=== PATIENT | male | born 1985 | race Caucasian/White ===

== ENCOUNTER 2021-01-10 19:14 | Emergency (ER) | payer OTHER, SELFPAY ==
[2021-01-10 19:31] VITALS: BMI 32.5
--- NOTE | 2021-01-10 20:17 | ED_ITS ---
HPI - Skin/Abscess/Foreign Bdy General Chief complaint: General Medical Stated complaint: Rash Time Seen by Provider: 01/10/21 19:59 Source: patient Mode of arrival: ambulatory Limitations: no limitations History of Present Illness MD complaint: rash Onset (ago): week(s) (One week worse today) Location: LLE and RLE Severity: moderate Quality: pruritic Pain Consistency: constant Relieving factors: none Exacerbating factors: none Context: other (Unknown patient is homeless and IV drug user) Associated symptoms: denies other symptoms Treatments prior to arrival: none Related Data Previous Rx's Medication Instructions Recorded cephalexin 500 mg capsule 500 mg PO BID 10 Days #20 cap 01/10/21 diphenhydramine HCl 25 mg tablet 50 mg PO Q6-8H PRN #14 tab 01/10/21 (Benadryl Allergy) mupirocin 2 % topical ointment 1 appl TOPICAL TID #22 g 01/10/21 sulfamethoxazole 800 1 tab PO BID 10 Days #20 tab 01/10/21 mg-trimethoprim 160 mg tablet (Bactrim DS) Allergies Allergy/AdvReac Type Severity Reaction Status Date / Time cat dander [CATS] Allergy Unknown ALLERGIES Unverified 12/15/19 17:17 clams Allergy Unknown UNKNOWN Unverified 12/15/19 17:17 dog dander [DOGS] Allergy Unknown ALLERGIES Unverified 12/15/19 17:17 pollen extracts [POLLEN] Allergy Unknown ALLERGIES Unverified 12/15/19 17:17 DIARRHEA MEDICATION Allergy Unknown UNABLE TO Uncoded 12/15/19 17:17 CONTROL TONGUE AND MOUTH MOVEMENT DUST Allergy Unknown ALLERGIES Uncoded 12/15/19 17:17 Review of Systems Review of Systems: Constitutional : No Fever, No Chills , no body aches, no recent illness Head/Face: No facial swelling, No facial redness ENT/Mouth : No oral/throat swelling, No Hoarseness, No Swallowing Difficulty Eyes: No Eye Pain, No Swelling, No Redness Cardiovascular : No Chest Pain, No SOB, No palpitations Respiratory : No Cough, No Sputum, No Wheezing, No Smoke Exposure, No Dyspnea Gastrointestinal : No Nausea, No Vomiting, No Diarrhea, No abdominal Pain Genitourinary : No Dysuria, No Urinary Frequency, No Hematuria Musculoskeletal : No joint pain, No Myalgias, No Joint Swelling Skin : No Skin Lesions, positive rash Neuro : No Weakness, No Numbness, No Headache, No dizziness, No tingling Psych : No Anxiety/Panic, No Depression Heme/Lymph: No Bruising, No Lymphadenopathy Endocrine : No Polyuria, No Polydipsia Denies changes in lotions or detergents. Denies new medications or any changes in medications. Denies drainage from rash. Denies any recent sick contacts or recent travel. Yes all other systems are reviewed and are negative PMFSH Past Medical History Attestation statement: The following information was validated with the patient. Physical Exam Vital Signs: Vital Signs: Body Mass Index 32.5 vital signs have been reviewed as normal and appeared to be correct. Blood pressure normal Heart rate normal. Respiration rate normal. Temperature normal. Oxygen saturation normal. Appearance: Alert. Oriented X3. No acute distress. Head: Normal external exam. Normocephalic. Atraumatic. Eyes: PERRLA. EOMI. Conjunctiva and sclera normal. Eyelids normal. ENT: Pharynx normal. Uvula midline. Moist mucous membranes. Neck: Normal inspection. Neck supple. FROM. CVS: Normal heart rate and rhythm. Respiratory: No respiratory distress. Painless inspiration. Skin: Skin warm and dry. Normal skin color. Normal skin turgor. Patient with erythematous macular/papular pustules scattered to bilateral lower extremities possibly bug bites that are now superimposed with cellulitis. Could possibly be a folliculitis. No additional rashes/lesions/lacerations noted. Extremities: Extremities exhibit normal range of motion. Extremities nontender. Neuro: Oriented X 3. No motor deficit. No sensory deficit. Reflexes normal. Normal steady gait. No focal neuro deficits noted. Vascular: + radial pulses/+ 2 distal pedal pulses/+2 dorsalis pedis b/l. Normal cap refill. No cyanosis noted to upper extremity nails and lower extremity toes nails. Course Course Course Narrative: 35-year-old male presenting to the ED with a rash to his bilateral legs for approximately 1 week that are pruritic in nature he is currently homeless. On exam it appears that they started as bug bites although now they could be superimposed with cellulitis versus folliculitis. Will DC home with antibiotics and symptomatic treatment instructions to return if any new or worsening symptoms to follow up with primary care provider. Patient understands agrees with this plan. MDM - Skin/Abscess/Foreign Bdy Medical Records Attestation: I reviewed the patient's medical records. Discharge Plan Discharge Clinical Impression: Folliculitis, Cellulitis, Bug bite Patient Disposition: Home, Self-Care Instructions: Cellulitis (ED), Folliculitis (ED), Warm Compress or Soak (ED) Prescriptions: New cephalexin 500 mg capsule 500 mg PO BID 10 Days Qty: 20 RF: 0 sulfamethoxazole-trimethoprim [Bactrim DS] 800-160 mg tablet 1 tab PO BID 10 Days Qty: 20 RF: 0 diphenhydramine HCl [Benadryl Allergy] 25 mg tablet 50 mg PO Q6-8H PRN (Reason: itching) Qty: 14 RF: 0 mupirocin 2 % ointment 1 appl topical TID Qty: 22 RF: 2 Referrals: Physician,Unknown J [Primary Care Provider] - 2 days (your pcp) Print Language: Frisian
[2021-01-10 20:43] VITALS: BP 132/56; PULSE 66; RESP 14; TEMP 37.1; O2SAT 98
== END 2021-01-10 20:38 | disposition home or self-care (01) ==
LOC: HO.ED 20:25
PROVIDERS: Emergency Provider Emergency Medicine Emergency Medical Services
DX: S80.862A Insect bite (nonvenomous), left lower leg, initial encounter (principal); S80.861A Insect bite (nonvenomous), right lower leg, initial encounter; L03.116 Cellulitis of left lower limb; L03.115 Cellulitis of right lower limb; L73.9 Follicular disorder, unspecified; W57.XXXA Bitten or stung by nonvenomous insect and other nonvenomous arthropods, initial encounter; Y93.9 Activity, unspecified; Y92.9 Unspecified place or not applicable; Y99.9 Unspecified external cause status; Z59.02 Unsheltered homelessness
CPT/HCPCS: 99283

== ENCOUNTER 2021-01-20 12:23 | Emergency (ER) | payer OTHER, SELFPAY ==
--- NOTE | 2021-01-20 12:35 | ED.PSYCH ---
HPI - Psych General Chief Complaint: Psychiatric Symptoms Stated Complaint: SI Time Seen by Provider: 01/20/21 12:32 Source: patient Mode of arrival: ambulatory Limitations: no limitations History of Present Illness HPI Narrative: 35-year-old male with a history of polysubstance abuse (heroin, cocaine, PCP), previously on Suboxone, history of depression and SI with attempt with OD in the past, history of alcohol abuse presenting with suicidal ideation. He is a vague historian, but he reports worsening depression and new suicidal thoughts with plan to either hang himself or jump off of a bridge per reports her nursing. He also reports thoughts about trying to overdose again. He has been using drugs, but would not quantify how much or how often. He denies using anything today. He states he is homeless but he has a sister who lives locally. He is not currently on any psychiatric medications. 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 He reports being at [facility] last month where his doctor saw him and he was sent for detox. He knows he needs detox again. He has not been eating or sleeping well. He reports not sleeping in 3 days. MD complaint: suicidal ideation Onset (ago): unknown Duration: constant History of same: Yes Relieving factors: none Exacerbating factors: alcohol and drug use Context: recent drug abuse and significant life stressor Associated psychiatric symptoms: depression, suicidal ideation and other (Insomnia) Associated symptoms: headache and insomnia Treatments prior to arrival: none If self harm: admits thoughts of self harm and has plan Details of plan: Hanging, jump off a bridge, overdosed. Related Data Home Medications Medication Instructions Recorded Confirmed gabapentin 300 mg capsule 1 cap PO TID 01/20/21 Previous Rx's Medication Instructions Recorded cephalexin 500 mg capsule 500 mg PO BID 10 Days #20 cap 01/10/21 diphenhydramine HCl 25 mg tablet 50 mg PO Q6-8H PRN #14 tab 01/10/21 (Benadryl Allergy) mupirocin 2 % topical ointment 1 appl TOPICAL TID #22 g 01/10/21 sulfamethoxazole 800 1 tab PO BID 10 Days #20 tab 01/10/21 mg-trimethoprim 160 mg tablet (Bactrim DS) Allergies Allergy/AdvReac Type Severity Reaction Status Date / Time cat dander [CATS] Allergy Unknown ALLERGIES Unverified 12/15/19 17:17 clams Allergy Unknown UNKNOWN Unverified 12/15/19 17:17 dog dander [DOGS] Allergy Unknown ALLERGIES Unverified 12/15/19 17:17 pollen extracts [POLLEN] Allergy Unknown ALLERGIES Unverified 12/15/19 17:17 DIARRHEA MEDICATION Allergy Unknown UNABLE TO Uncoded 12/15/19 17:17 CONTROL TONGUE AND MOUTH MOVEMENT DUST Allergy Unknown ALLERGIES Uncoded 12/15/19 17:17 Review of Systems Review of Systems: Constitutional: No Fever, No Chills ENT/Mouth: No sore throat, No Rhinorrhea, No Swallowing Difficulty Cardiovascular: No Chest Pain, No SOB Respiratory: No Cough, No Sputum, No Wheezing, No dyspnea Gastrointestinal: No Nausea, No Vomiting, No Diarrhea, No abdominal Pain, +poor PO intake Genitourinary: No Dysuria, No Urinary Frequency, No Hematuria Musculoskeletal: No joint pain, No Myalgias Skin: No Skin Lesions, No rash Neuro: No Weakness, No Numbness, No Dizziness, + Headache Psych: + Anxiety/Panic, + Depression, +SI, No HI, No AH, No VH, +insomnia Heme/Lymph: No Bruising, No Lymphadenopathy PMFSH Social History Social History Advance Directives: No Physical Exam Vital Signs: Vital Signs: Last Vital Signs Pulse 62 01/20/21 17:05 Resp 16 01/20/21 17:05 BP 103/54 L 01/20/21 17:05 Pulse Ox 98 01/20/21 17:05 Body Mass Index 37.5 Appearance: Tired appearing, soft spoken. Oriented X3. No acute distress. Eyes: Pupils equal, round and reactive to light. ENT: Pharynx normal. Neck: Normal inspection. Neck supple. CVS: Normal heart rate and rhythm. Pulses normal. Respiratory: No respiratory distress. Breath sounds normal. Abdomen: Soft and nontender. +BS x4 Skin: Skin warm and dry. Normal skin color. Normal skin turgor. No rashes. Extremities: No lower extremity edema. Tattos on UE. Neuro/psych: Oriented X 3. No motor deficit. No sensory deficit. CN II-XII intact. Soft spoken, vague historian, +suicidality Course Course Course Narrative: 35-year-old male with history of polysubstance abuse, alcohol abuse, depression, history of suicide attempt in the past who is presenting with worsening depression and suicidal ideation. He has multiple plans on how he would execute a suicide attempt. He is lethargic on arrival and vague in his history. He denies any illicit drug use today, will get U tox and basic lab workup. His vital signs are stable. He would not benefit from and EATS program for both depression and substance abuse Reevaluation(s) Reevaluation #1: Multiple attempts were made at getting blood work without success, now patient is refusing any more attempts at phlebotomy. His urine toxicology was positive for opiates, fentanyl, cocaine and marijuana. He was seen by and who is recommending detox. There is a bed available tomorrow. Patient does not feel safe going home as he is afraid he is going to go through significant withdrawal in the very near future. He would like to be monitored in the emergency department until he can be accepted to detox bed tomorrow. Physician observation started at 7pm. Patient placed in physician observation because patient is awaiting detox bed for tomorrow. At the time observation was started patient's vital signs were stable. Patient is alert and oriented. Neuro exam is non-focal. CV: RRR and lungs are clear. Will continue to monitor. Will monitor cows score. MDM - Psych Lab Data Labs: Lab Results 01/20/21 01/20/21 01/20/21 Range/Units 13:06 13:06 13:06 Urine Color YELLOW Urine Appearance CLEAR Urine pH 6.0 (5.0-8.0) Ur Specific Reeves 1.015 (1.005-1.025) Urine Protein NEG (NEG-TRACE) MG/DL Urine Glucose (UA) NEG (NEG) MG/DL Urine Ketones NEG (NEG) MG/DL Urine Blood NEG (NEG) Urine Nitrite NEG (NEG) Ur Leukocyte Esterase NEG (NEG) Urine Opiates Screen POSITIVE H (Not Detect) Urine Fentanyl Screen POSITIVE H (Not Detect) Ur Barbiturates Screen Not Detected (Not Detect) Ur Phencyclidine Scrn Not Detected (Not Detect) Ur Amphetamines Screen Not Detected (Not Detect) U Benzodiazepines Scrn Not Detected (Not Detect) Urine Cocaine Screen POSITIVE H (Not Detect) U Marijuana (THC) Screen POSITIVE H (Not Detect) COVID-19 (UBALDO) Negative (Negative) COVID-19 Clin Com See Note Discharge Plan Discharge Clinical Impression: Depression, Polysubstance abuse Instructions: Polysubstance Abuse (ED) Prescriptions: No Action gabapentin 300 mg capsule 1 cap PO TID RF: 0 cephalexin 500 mg capsule 500 mg PO BID 10 Days Qty: 20 RF: 0 sulfamethoxazole-trimethoprim [Bactrim DS] 800-160 mg tablet 1 tab PO BID 10 Days Qty: 20 RF: 0 diphenhydramine HCl [Benadryl Allergy] 25 mg tablet 50 mg PO Q6-8H PRN (Reason: itching) Qty: 14 RF: 0 mupirocin 2 % ointment 1 appl topical TID Qty: 22 RF: 2
[2021-01-20 12:53] VITALS: RESP 18; BMI 37.5
[2021-01-20 13:21] LABS: Appearance Urine CLEAR; Color Urine YELLOW; Glucose Urine UA NEG (NEG); Leukocyte Esterase Urine NEG (NEG); Nitrite Urine NEG (NEG); Specific Gravity - Urine 1.015 (1.005-1.025); Urine Blood NEG (NEG); Urine Ketones NEG (NEG); Urine Protein NEG (NEG-TRACE)
[2021-01-20 13:30] LABS: Amphetamine Screen Urine Not Detected (Not Detect); Barbiturates, Urine Not Detected (Not Detect); Benzodiazepines Screen Urine Not Detected (Not Detect); Cannabinoid Screen Urine POSITIVE (Not Detect); Cocaine Screen Urine POSITIVE (Not Detect); Fentanyl, urine POSITIVE (Not Detect); Opiate Screen Urine POSITIVE (Not Detect); Phencyclidine Screen Urine Not Detected (Not Detect)
[2021-01-20 13:35] LABS: COVID-19 Test Negative (Negative); IDNOW Serial# 9DD0AD1C
[2021-01-20 17:05] VITALS: BP 103/54; PULSE 62; RESP 16; O2SAT 98
[2021-01-21 01:54] VITALS: PULSE 71
[2021-01-21 02:02] VITALS: BP 151/93; PULSE 76; RESP 18; TEMP 36.6; O2SAT 99
[2021-01-21] MEDS: LORazepam 1 MG TABLET 2 MG PO (02:03)
[2021-01-21] MEDS: Albuterol Sulfate 90 MCG 8 GM INHALER 2 PUFF INHALE (02:54)
--- NOTE | 2021-01-21 05:50 | PC.NURSE ---
Patient is currently in bed sleeping, @ 0159 patient reported he was uncomfortable, COWS assessed scored 10, provider notified/ordered ativan 2 mg, administered as ordered with positive effect, patient also received Ventolin 2 puff for asthma flare up with positive effect, behavior appropriate, medication compliant, contracted for the safety, VSS, patient disposition per [facility] is to go to [facility] in [place] in the morning, [facility] will arrange the ride if for reason [facility] couldn't arrange the ride, care team will arrange a ride, will continue to monitor.
--- NOTE | 2021-01-21 07:02 | PC.NURSE ---
patient appears to remain aslepe at prsent with even unlbaored breaths patient appears in no distress
[2021-01-21 09:07] VITALS: BP 151/93; PULSE 76
[2021-01-21] MEDS: cloNIDine HCL 0.1 MG TABLET PO (09:07)
[2021-01-21 09:47] VITALS: BP 140/71; PULSE 74; RESP 16; TEMP 36.8; O2SAT 100
[2021-01-21 10:08] VITALS: PULSE 72
[2021-01-21] MEDS: LORazepam 1 MG TABLET PO (10:20)
--- NOTE | 2021-01-21 12:16 | MHC.RECOVSUP ---
Recovery Support note: Patient is a 35 year old Sinhala speaking male who presented to [facility] ED seeking detox and reporting SI. Patient was evaluated by LIZZETTE. N determined patient would benefit most from detox and that they are holding a bed for him at [facility]. This service writer advisor met with patient and confirmed he is still interested in detox. [facility] did not have a bed for patient however they reviewed him for admission and accepted him. Patient to complete intake with [facility]. This service writer advisor will assist patient in coordinating transportation to the facility.
== END 2021-01-21 12:54 | disposition other institution (70) ==
PROVIDERS: Physician Assistant; Emergency Provider Emergency Medicine
DX: F33.1 Major depressive disorder, recurrent, moderate (principal); R45.851 Suicidal ideations; F11.10 Opioid abuse, uncomplicated; F14.10 Cocaine abuse, uncomplicated; G47.00 Insomnia, unspecified; G51.9 Disorder of facial nerve, unspecified; Z20.822 Contact with and (suspected) exposure to COVID-19; Z79.899 Other long term (current) drug therapy; Z71.51 Drug abuse counseling and surveillance of drug abuser
CPT/HCPCS: 36415; 80307; 81003; 87635; 99284; 99285

== ENCOUNTER 2022-10-19 08:10 | Emergency (ER) | payer OTHER, SELFPAY ==
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
[2022-10-19 08:24] VITALS: BP 138/81; PULSE 85; RESP 18; TEMP 36.4; O2SAT 95; BMI 33.5
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
[2022-10-19 12:48] VITALS: BP 129/73; PULSE 75; RESP 14; TEMP 36.9; O2SAT 97
[2022-10-19 14:34] VITALS: BP 137/88; PULSE 82; RESP 16; TEMP 36.9; O2SAT 96
--- NOTE | 2022-10-19 14:36 | MHC.RECOVRN ---
Pt sleeping, wakes briefly to voice. Not able to engage in conversation at this time with t/w.
--- NOTE | 2022-10-19 15:37 | PC.NURSE ---
assumed care of pt. pt continues to appear to be somnolent. VSS, pt with no complaints at this time, NAD
--- NOTE | 2022-10-19 16:09 | PC.NURSE ---
pt arousable to name, denies detox at this time. offer list for detox at this time. pt denies SI/SHb. d/c at this time
== END 2022-10-19 16:12 | disposition home or self-care (01) ==
PROVIDERS: Emergency Provider Emergency Medicine Emergency Medical Services
DX: F19.10 Other psychoactive substance abuse, uncomplicated (principal); S02.2XXA Fracture of nasal bones, initial encounter for closed fracture; S09.90XA Unspecified injury of head, initial encounter; Y04.2XXA Assault by strike against or bumped into by another person, initial encounter; Y93.9 Activity, unspecified; Y92.9 Unspecified place or not applicable; Y99.9 Unspecified external cause status
CPT/HCPCS: 70450; 70486; 99284

== ENCOUNTER 2023-08-03 01:59 | Emergency (ER) | payer OTHER, SELFPAY ==
[2023-08-03 02:11] VITALS: BP 142/86; PULSE 106; RESP 20; TEMP 37; O2SAT 96; BMI 27.4
--- OUTSIDE RECORDS SUMMARY | 2023-08-03 02:40 | XMS_ITS | Continuity of Care Document ---
Author Organization [facility] Address [address] [place] [address]- Care Team Providers [employer] Name Role Phone Not on Staff, PCP Primary Care Physician Unavail able [id number] Date(s): 02/16/21 - 02/16/[address] [address]- Discharge Disposition: A-D/C Home Attending Physician: Gabriele Crowder MD Admitting Physician: Gabriele Crowder MD Referring Physician: Not on Staff, Referring MD Allergies, Adverse Reactions, Alerts Substance Reaction Severity Status NKA Active Medications cloNIDine 0.1 mg oral tablet 0.1 mg, 1, tablet, By Mouth, 2 times a day, Refills 0, Maintenance, 02/16/21 10:12:00 EST, Partial fill upon patient request if the prescription is for a schedule II opioid drug. Start Date: 02/16/21 Status: Ordered Gabapentin = 300 mg, By Mouth, 3 times a day, 0 Refills, Maintenance, 02/16/21 10:12:00 EST, Partial fill uponpatient request if the prescription is for a schedule II opioid drug. Start Date: 02/16/21 Status: Ordered Methadone By Mouth, 0 Refills, Maintenance, 02/16/21 10:12:00 EST, Partial fill upon patient request if the prescription is for a schedule II opioid drug. Start Date: 02/16/21 Status: Ordered methadone 10 mg oral tablet 30 mg, Tablet, By Mouth, Once, STAT, 02/16/21 10:36:00 EST, Stop date 02/16/21 10:36:00 EST Start Date: 02/16/21 Stop Date: 02/16/21 Status: Completed naloxone 4 mg/0.1 mL nasal spray = 4 mg, Nares, Both, Once, may repeat every 2 to 3 minutes until patient responds, # 2 each, 0 Refills, Soft Stop, 02/09/19 19:53:28 EST Start Date: 05/08/18 Status: Ordered Vistaril pamoate 50 mg oral capsule 1 capsule = 50 mg, By Mouth, 4 times a day, PRN for anxiety, # 40 capsule, 0 Refills, Maintenance, 02/16/21 10:13:00 EST, Capsule, Partial fill upon patient request if the prescription is for a schedule II opioid drug. Start Date: 02/16/21 Status: Ordered Problem List Condition Effective Dates Status Health Status Inform ant Hepatitis C(Confirmed) Active Obese class I(Confirmed) Active Vital Signs Most recent to oldest [Reference Range]: 1 2 Height 180 cm (02/16/21 10:11 AM) 180 cm (02/16/21 10:09 AM) Weight 105.6 kg (02/16/21 10:11 AM) 105.6 kg (02/16/21 10:09 AM) Oxygen Saturation [94-100 %] 99 % (02/16/21 10:09 AM) Pulse Rate [55-90 bpm] 64 bpm (02/16/21 10:09 AM) Body Mass Index [18.5-24.99] 32.59 *>HHI* (02/16/21 10:09 AM) Blood Pressure [90-138/55-84 mm Hg] 156/ 80mm Hg *H* (02/16/21 10:09 AM) Respiratory Rate [16-30 br/min] 16 br/mi n (02/16/21 10:41 AM) 16 br/min (02/16/21 10:09 AM) Temperature [96.8-100.4 DegF] 98.1 DegF (02/16/21 10:09 AM) Mode of Delivery (Oxygen) Room air (02/16/21 10:09 AM) Blood pressure sites Arm, left (02/16/21 10:09 AM) Temperature Route Temporal (02/16/21 10:09 AM) Dry Weight 105.6 kg (02/16/21 10:11 AM) 105.6 kg (02/16/21 10:09 AM) Weight Obtained Via Standing scale (02/16/21 10:09 AM) Dry Weight Obtained Via Standing scale (02/16/21 10:09 AM) Social History Social History Type Response Tobacco Use: 4 or less cigar ettes(less than 1/4 pack)/day in last 30 days. Sex
--- OUTSIDE RECORDS SUMMARY | 2023-08-03 02:40 | XMS_ITS | Continuity of Care Document ---
Author Organization [facility] Address [address] [place] [address] Phone Care Team Providers Care Human Resources Analyst Name Role Phone MD Lamberto Brownas Emergency Provider Unavaila MD Vernon Rose Attending Provider [email or web address] [email or web address] Edge Primary Care Provider [phone] Ilya Edge Family Provider Custom Grinder, Mira Other Provider Unavailable Chief Complaint and Reason for Visit Chief Complaint RIGHT SUPRACLAVICULA R ABSCESS Reason for Visit Abscess Depression Foreign body in skin Allergies, Adverse Reactions, Alerts No known allergies Social History Smoking Status Unknown if ever smoked Observation Status Observation Response Date of Response Lives With Friend/Roommate July 24, 2022 11:29am Living Situation Apartment July 24 12:31pm Services Prior to Admission None Apri l 2022 11:29am Additional Data Assigned Sex Male Problems Active Problems Medical Problem Onset Date Status Abscess Active Depression Active Foreign body in skin Active Opioid abuse Active Medications Medication Status Dose Units Route Directions Qty Days St art Date End Date Instructions Cefpodoxime Active 200 MG PO TWICE A DAY 20 July 28, 2022 12:00am must administer with a meal/food Procedures Procedure Date Performed Status CT soft tissue neck w contrast July 23, 2022 9:31pm completed US guide cyst aspiration July 24, 2022 10:40a m completed US soft tissue head and neck July 25, 2022 8: 43am completed Coronavirus COVID-19 PCR complet ed Gram Stain completed Abscess Culture completed Relevant Diagnostic Tests and/or Laboratory Data Laboratory Results Test Date/Time Result Interpretation Reference Range Result Comment Performing Site White Blood Count July 25, 2022 6:00am 6.7 X10 3/uL 4.5-11.0 [facility] [id number] [address] [place] [address] 26985 Red Blood Count July 25, 2022 6:00am 4.67 X10 6/uL 4.00-5.50 [facility] [id number] [address] [place] [address] 93262 Hemoglobin July 25, 2022 6:00am 13.7 g/dl 13.0-17.0 [facility] [id number] [address] [place] [address] 77809 Hematocrit July 25, 2022 6:00am 43.0 % 37.5-50.0 [facility] [id number] [address] [place] [address] 12904 Mean Corpuscular Volume July 25, 2022 6:00am 92.1 fl 80.0-100.0 [facility] [id number] [address] [place] [address] 77498 Mean Corpuscular Hemoglobin July 25, 2022 6:00am 29.3 pg 27.0-34.0 [facility] [id number] [address] [place] [address] 27890 Mean Corpuscular Hemoglobin Concent July 25, 2022 6:00am 31.9 g/dl 31.0-36.0 [facility] [id number] [address] [place] [address] 97026 Red Cell Distribution Width July 25, 2022 6:00am 12.8 % 11.5-15.0 [facility] [id number] [address] [place] [address] 23083 Platelet Count July 25, 2022 6:00am 330 X10 3/uL 150-400 [facility] [id number] [address] [place] [address] 02027 Immature Granulocyte % (Auto) July 25, 2022 6:00am 0.4 % [facility] [id number] [address] [place] [address] 05490 Neutrophils (%) (Auto) July 25, 2022 6:00am 44.9 % [facility] [id number] [address] [place] [address] 56908 Lymphocytes (%) (Auto) July 25, 2022 6:00am 40.7 % [facility] [id number] [address] [place] [address] 82169 Monocytes (%) (Auto) July 25, 2022 6:00am 9.5 % [facility] [id number] [address] [place] [address] 77920 Eosinophils (%) (Auto) July 25, 2022 6:00am 3.9 % [facility] [id number] [place] [address] 70954 Basophils (%) (Auto) July 25, 2022 6:00am 0.6 % [facility] [id number] [place] [address] 49217 Immature Granulocyte # (Auto) July 25, 2022 6:00am 0.03 X10 3/uL 0.00-0.09 [facility] [id number] [address] [place] [address] 94743 Neutrophils # (Auto) July 25, 2022 6:00am 3.0 X10 3/uL 1.5-7.8 [facility] [id number] [address] [place] [address] 04016 Lymphocytes # (Auto) July 25, 2022 6:00am 2.7 X10 3/uL 1.0-4.8 [facility] [id number] [address] [place] [address] 03356 Monocytes # (Auto) July 25, 2022 6:00am 0.6 X10 3/uL 0.0-0.8 [facility] [id number] [address] [place] [address] 50549 Eosinophils # (Auto) July 25, 2022 6:00am 0.3 X10 3/uL 0.0-0.5 [facility] [id number] [address] [place] [address] 04976 Basophils # (Auto) July 25, 2022 6:00am 0.0 X10 3/uL 0.0-0.2 [facility] [id number] [address] [place] [address] 20560 Nucleated Red Blood Cells % July 25, 2022 6:00am 0.0 /100 WBC 0.0-0.0 [facility] [id number] [address] [place] [address] 63318 Sodium Level July 25, 2022 6:00am 139 mmol/L 137-146 [facility] [id number] [address] [place], [place] [address] Potassium Level July 25, 2022 6:00am 4.0 mmol/L 3.5-5.3 [facility] [id number] [address] [place] [address] 17050 Chloride Level July 25, 2022 6:00am 102 mmol/L 98-107 [facility] [id number] [address] [place] [address] 53149 Carbon Dioxide Level July 25, 2022 6:00am 28 mmol/L 23-32 [facility] [id number] [address] [place], [place] [address] Anion Gap July 25, 2022 6:00am 9 mmol/L 5-15 [facility] [id number] [address] [place] [address] 03415 Blood Urea Nitrogen July 25, 2022 6:00am 11 mg/dl 5-25 [facility] [id number] [address] [place] [address] 00378 Creatinine July 25, 2022 6:00am 0.8 mg/dL 0.6-1.4 [facility] [id number] [address] [place], [place] [address] Estimated Creatinine Clearance July 25, 2022 6:00am 165.2 ml/min This value is calculated by Cockcroft Gault Equation using ideal body weight. This result is dependent on an accurate patient height and weight which is obtained from patients medical record. Cockcroft, D.W. and M.H. Gault. Prediction of creatinine clearance from serum creatinine. Nephron. 1976. 16(1):31-41. [facility] [id number] [address] [place], [place] [address] Estimat Glomerular Filtration Rate July 25, 2022 6:00am 116 >90 Reported eGFR is based on the CKD-EPI 2020 equation that does not use a race coefficient. Additional information can be found at: 1_icb_egfr_s janice_sole 5.pdf (kidney.org) [facility] [id number] [address] [place] [address] 99066 BUN/Creatinine Ratio July 25, 2022 6:00am 13.8 10.0-20.0 [facility] [id number] [address] [place] [address] 95377 Glucose Level July 25, 2022 6:00am 115 mg/dL 70-100 [facility] [id number] [address] [place] [address] 92438 Calcium Level July 25, 2022 6:00am 9.0 mg/dl 8.6-10.3 [facility] [id number] [address] [place] [address] 54236 Total Bilirubin July 23, 2022 9:50pm < 0.2 mg/dl <1.1 [facility] [id number] [address] [place] [address] 58233 Aspartate Amino Transf (AST/SGOT) July 23, 2022 9:50pm 40 U/L 15-41 [facility] [id number] [address] [place] [address] 73171 Alanine Aminotransferase (ALT/SGPT) July 23, 2022 9:50pm 66 U/L 14-63 [facility] [id number] [address] [place] [address] 52532 Total Protein July 23, 2022 9:50pm 7.6 g/dL 6.4-8.3 [facility] [id number] [address] [place] [address] 65831 Albumin July 23, 2022 9:50pm 3.7 g/dl 4.0-5.0 [facility] [id number] [address] [place] [address] 39717 Albumin/Globulin Ratio July 23, 2022 9:50pm 0.9 1.0-2.6 [facility] [id number] [address] [place] [address] 15648 Alkaline Phosphatase July 23, 2022 9:50pm 74 U/L 40-129 [facility] [id number] [address] [facility] [address]687 Hepatitis A IgM Antibody July 25, 2022 6:00am Non-react farzana Non React [facility] [id number] [address] [place] [address] 02072 Hepatitis B Surface Antigen July 25, 2022 6:00am Non-react farzana Non React [facility] [id number] [address] [place] [address] 57334 Hepatitis B Core IgM Antibody July 25, 2022 6:00am Non-react farzana Non React [facility] [id number] [address] [place] [address] 67514 Hepatitis C Antibody July 25, 2022 6:00am Reactive Non React [facility] [id number] [address] [place] [address] 60206 Microbiology Results Procedure Source Result Collection Date/Time Result Date/Time Result Comment Performing Site Gram Stain Neck July 24, 2022 9:17pm [facility] [id number] [address] [place] [address] 61789 Abscess Culture Neck Alpha hemolytic streptococcus July 28, 2022 9:33am [facility] [id number] [address] [place] [address] 74767 Neck Meth Sensitive Staph aureus July 28, 2022 9:33am [facility] [id number] [address] [place] [address] 31143 Coronavirus COVID-19 PCR Nares, Both Left & Right July 28, 2022 11:38am [facility] [id number] [address] [place] [address] 38027 Diagnostic Imaging Reports Report Dictated Date/Time Dictated By Status Radiology Report July 23, 2022 10:55pm Marvin Mcclain MD completed [address] [phone] Patient Name: Rupesh Mccartney Medical Record#: [id number] Address: [address] [place] [address] City/State/Zip: [place] [address]: Angelina Brown MD Insurance: [facility] (Medicaid) /Age/Sex: 1985/37/M Self Pay Admit/Reg Date: 07/23/[address]: TESSA Jalloh Location: ED.[facility]/ PCP: Pcp-Md MIGUELITO Adam Date of Service: 07/23/22 Order (s): CT soft tissue neck w contrast CPT Code: 46855 Report Number: [id number] Reason for Exam: right supraclavian abscess PROCEDURE: CT soft tissue neck w contrast INDICATION: right supraclavian abscess. IVDA TECHNIQUE: Informed written consent was obtained for intravenous contrast administration. Examination was performed using a helical acquisition with 2.5 mm thick images obtained from the skull base through the thoracic inlet during the intravenous administration of 50 ml of Omnipaque 300 intravenous contrast by power injector. Automatic exposure control was used. Axial imaging is reformatted to the coronal and sagittal planes COMPARISON: None FINDINGS: The cervical airway is patent. The vascular and muscular structures are unremarkable at the neck. At the right neck base, supraclavicular region, there is a rounded nodule with low density center measuring roughly 2 cm in maximal diameter. This is consistent with abscess or hematoma this is located just lateral to the sternocleidomastoid muscle on the right. There is overlying skin thickness consistent with surrounding cellulitis. Medial and inferior to this abscess at the wall of this structure there is a 12 mm metallic linear foreign body which may represent a needle fragment. This is in an AP orientation. Some VASCULAR STRUCTURES - likely veins - appear just lateral and inferior to this abscess. Visualized lung cloud appear clear there is mild bilateral cervical lymphadenopathy deep to this study muscle, slightly worse IMPRESSION: Consistent with a right subcutaneous supraclavicular abscess. This can be aspirated under sonographic guidance. In addition, an apparent needle fragment is seen inferior and medial to this abscess in an AP orientation. These results have been discussed with GIO Harris in the [facility] at 11:00 PM on 05/25/2022. Dictated By: Marvin Mcclain MD 07/23/222254 Signed By: Marvin Mcclain MD 07/23/228 TD/TT: 07/23/222254Tech: [id number] cc: PASCUAL; TYREE; VARTA03* TESSA Jalloh; Md Heide MD; William Brown MD Report Dictated Date/Time Dictated By Status Radiology Report July 24, 2022 2:32pm Zac Julian MD completed [address] [phone] Patient Name: Rupesh Mccartney Medical Record#: [id number] Address: [address] [place] [address] City/State/Zip: [place] [address]: Josh Fonseca MD Insurance: [facility] (Medicaid) /Age/Sex: 1985/37/M Self Pay Admit/Reg Date: 07/23/[address]: Yashira sarabia PAC Location: [address] [place], [place] [id number] PCP: Md MIGUELITO Jaeger Date of Service: 07/24/22 Order (s): US guide cyst aspiration CPT Code: 60858 Report Number: [id number] Reason for Exam: ultrasound guided neck abscess aspiration PROCEDURE: Ultrasound guided percutaneous aspiration right neck abscess. HISTORY: Right neck abscess resulting in pain and swelling. TECHNIQUE: Ultrasound of the right neck base revealed a 2.7 x 1.5 cm heterogenous fluid collection compatible with abscess, suitable for percutaneous aspiration. The overlying skin was cleaned sterilely and 5 mL 1% administered. Under direct ultrasound guidance, a 5F Yueh catheter was inserted into the collection and approximately 3 cc of blood stained pus aspirated. Samples were sent for culture and sensitivity. Patient was transferred to the floor in a stable condition. IMPRESSION: Ultrasound-guided percutaneous needle aspiration right neck abscess with removal of 3 mL of blood stained pus. Dictated By: Zac Julian MD 07/24/221431 Signed By: Zac Julian MD 07/24/221437 TD/TT: 07/24/221431Tech: [id number] cc: TYREE; WENDY Jasso, PAC; Md Heide MD; Vernon Fonseca MD Report Dictated Date/Time Dictated By Status Radiology Report July 25, 2022 10:32am Varun Epps MD completed [address] [place] [address] Patient Name: Rupesh Mccartney Medical Record#: [id number] Address: [address] [place] [address] City/State/Zip: [place] [address]: Josh Fonseca MD Insurance: [facility] (Medicaid) /Age/Sex: 1985/37/M Self Pay Admit/Reg Date: 07/23/[address]: Shreya Guzman MD, PGY Location: [address] [place], [place] [id number] PCP: Md MIGUELITO Jaeger Date of Service: 07/25/22 Order (s): US soft tissue head and neck CPT Code: 13528 Report Number: [id number] Reason for Exam: andreas abscess and needle site for surgery Patient name: Rupesh Mccartney Exam: US soft tissue head and neck Technique: Ultrasound of the right neck Procedure Date and Time: 07/25/2022 9:36 AM Indication: andreas abscess and needle site for surgery . 37-year-old male patient with a known right supraclavicular abscess previously aspirated. Also has a known needle fragments near the abscess. Comparison: 07/24/2022 and 07/23/2022 Findings: 6 images provided. The previously drained abscess which now has the appearance of a phlegmon is again seen. This was marked by the replenishment buyer. IMPRESSION: IMAGES OBTAINED DURING MARKING OF THE SKIN OVERLYING THE ABSCESS AND NEEDLE FRAGMENT IN THE RIGHT SUPRACLAVICULAR REGION. Dictated By: Varun Epps MD 07/25/22 1032 Signed By: Varun Epps MD 07/25/22 1039 TD/TT: 07/25/22 1032Tech: [id number] cc: DIMITRIOS; PCPCHELI; ABEBA* Shreya Guzman MD, PGY; Md Heide MD; Vernon Fonseca MD Vital Signs Vital Reading Result Reference Range Collection Date/Time Height 180.34 cm July 24 1:33am Weight 120.34 kg July 24 1:33am Body Temperature 98.1 [degF] 97.6-99.6 July 28 5:45am Heart Rate 56 /min 60-90 July 28, 2022 5 :45am Respiratory rate 18 /min 12-24 July 28 5:45am Oxygen saturation by Pulse oximetry 98 % 95-100 July 28, 2022 5:45am BP Systolic 106 mm[Hg] 90-140 July 28, 2022 5 :45am BP Diastolic 62 mm[Hg] 60-90 July 28, 2022 5 :45am BMI (Body Mass Index) 37.0 kg/m2 July 24, 2022 1:33am Advance Directives Advance Directive Response Recorded Date/ Time Pt has Medical Orders for Li fe Sustaining Tx Form (MOLST)? No July 24, 2022 11:29am Advance Directives No July 24, 2 023 11:29am Health Care Proxy No July 24 11:29am Insurance Providers Guarantor Rupesh Mccartney Address [address] [place] [address] Contact Info. Home Phone: Payer Policy Id Coverage Id Subscriber's Name Subscriber Id Effective Date Expiration Date [facility] (Medicaid) [id number] Rupesh Mccartney [id number] [facility] Required [id number] Encounters Encounter Location(s) Arrival/Admit Date Discharge/Depart Date Provider(s) Discharged Inpatient [address] July 23, 2022 11:30pm July 28, 2022 3:30pm Vernon Fonseca MD Recent Diagnosis Onset Date Abscess Depression Foreign body in skin Functional Status Observation Response Date Recorded Assistive Devices None July 24 11:29am Ambulation Tolerance Good July 28 10:04am Date of Last Bowel Movement 07/28/22 July 28, 2022 10:04am Oral Care Teeth Brushing July 27, 2022 12:38pm Mental Status Observation Response Date Recorded Arousable To Name July 28, 2022 2: 59am Patient Behavior Appropriate July 28, 2022 2 :59am Cooperative July 28, 2022 2: 59am Comprehension Ability Understands Concepts July 282022 2:59am Level of Consciousness Awake July 28, 2022 2:59am Alert July 28, 2022 2: 59am Appropriate July 28, 2022 2: 59am Assessments Diagnosis Onset Date Resolution Status Abscess acute Depression acute Foreign body in skin acute Plan of Treatment Future Tests Future scheduled test information is unavailable Pending Tests Test Name Ordered Date Scheduled Date VTE Risk Assessment Medical July 23, 2022 11: 29pm July 23, 2022 11:30pm Future Visits Future appointment information is unavailable Referrals to Other Providers Reason for Referral Referral Start Date Provider Provider Contact Information Provider Address Ilya Edge Work Phone: Future Procedures Procedure Name Ordered Date Scheduled Date Hospital Level of Care July 23, 2022 11:29pm July 23, 2022 11:30pm Psychiatry Consult July 27, 2022 11:43am Apri l 2022 11:43am Discharge July 28, 2022 11:40am July 28, 023 11:40am ED Transfer of Care to Adm Physician July 23, 2022 11:32pm July 23, 2022 11:32pm Saline Lock Insert/Manage July 23, 2022 9:30p m July 23, 2022 9:30pm Patient Preference for Pain Management July 23, 2022 11:29pm July 23, 2022 11:30pm Sequential Compression Device July 23, 2022 1 1:29pm July 23, 2022 11:30pm Future Medications Future medication information is unavailable Patient Instructions Patient instructions are unavailable Goals Acute Goals Dear Bib, It has been a pleasure caring for you here. You came to the hospital because of pain and swelling in your neck, where you had injected IV drugs. While you were here, we monitored you closely and ran some tests and imaging. You were found to have an abscess, which was drained, as well as a small needle fragment in your neck. We gave you IV antibiotics and monitored your labs and vitals. Because you are responding to antibiotics, and your symptoms are improving, we are clearing you for discharge with these recommendations: Follow-up: [] You have a follow up appointment scheduled with Dr. Newby in the [facility] on August 06 at 10:15 AM [] Please follow up with your primary care provider within 1-2 weeks of discharge home Medications: [] Please take cefpodoxime (Vantin), an antibiotic, twice daily by mouth for the next 10 days [] You can take acetaminophen and ibuprofen as needed for pain. Please do not exceed the recommended maximum daily dose Please return to the nearest emergency department if your symptoms return and/or worsen. The [facility] team Recognize the need for isola tion Describe the mode of transmi ssion Absence of infection signs a nd symptoms Patient/Caregiver understands the importance of: - Baseline body temperature - Handwashing and environmental hygiene - Antibiotics compliance Absence of falls Including: - Early & often mobilization when appropriate - Passive/active range of motion as appropriate - toileting schedule implementation - implementation of fall risk interventions Pt reports/exhibits pain at hernandez level Including: - Pain controlled by pharmacological/non-pharmacological means - Establish realistic pain and function goals prior to initiating opioid therapy in patients with chronic pain if applicable - Discuss known risks and realistic benefits of opioid therapy Wound/Skin Integ Progressive ly Improving Including: - Evidence of healing - No s/s of infection Absence of fluid/electrolyte imbalance Including: - Improved lab values - Adequate urine output - Adequate hydration - Stable weight if appropriate Able to achieve maximum mobi lity level Including: - Understands safety - Demonstrates progress in improved mobility - Demonstrates correct use of mobility devices if appropriate - Understands & accepts limitations & plan for progression as appropriate Absence of infection signs a nd symptoms Patient/Caregiver understands the importance of: - Baseline body temperature - Handwashing and environmental hygiene - Antibiotics compliance Antimicrobial Educ Reviewed with Patient Safely transition to next le [facility] of care Patient/family has: - Appropriate access to resources and support services as applicable Absence of nausea/vomiting Including: - [place] foods, cool liquids, dry foods and high-carbohydrate diet - Small, frequent meals - Restrict dairy products
--- OUTSIDE RECORDS SUMMARY | 2023-08-03 02:40 | XMS_ITS | Continuity of Care Document ---
Author Organization [facility] Address [address] [place] [id number]- Care Team Providers Care Trailer Driver Name Role Phone Not on Staff, PCP Primary Care Physician Unavail able Encounter [facility] Date(s): 05/28/20 - 05/29/[address] [address]- Discharge Disposition: A-D/C Walkout Attending Physician: Not on Staff, Attending MD Admitting Physician: Not on Staff, Admitting MD Referring Physician: Not on Staff, Referring MD Allergies, Adverse Reactions, Alerts Substance Reaction Severity Status NKA Active Medications naloxone 4 mg/0.1 mL nasal spray = 4 mg, Nares, Both, Once, may repeat every 2 to 3 minutes until patient responds, # 2 each, 0 Refills, Soft Stop, 05/08/18 19:53:28 EST Start Date: 05/08/18 Status: Ordered Problem List Condition Effective Dates Status Health Status Inform ant Hepatitis C(Confirmed) Active Vital Signs Most recent to oldest [Reference Range]: 1 2 Oxygen Saturation [94-100 %] 97 % (05/28/20 11:23 PM) 100 % (05/28/20 8:53 PM) Pulse Rate [55-90 bpm] 80 bpm (05/28/20 11:23 PM) 86 bpm (05/28/20 8:53 PM) Blood Pressure [90-138/55-84 mm Hg] 130/ 63mm Hg (05/28/20 11:23 PM) 144/70mm Hg *H* (05/28/20 8:53 PM) Respiratory Rate [16-30 br/min] 18 br/mi n (05/28/20 11:23 PM) 18 br/min (05/28/20 8:53 PM) Temperature [96.8-100.4 DegF] 99.7 DegF (05/28/20 11:23 PM) 98.7 DegF (05/28/20 8:53 PM) Mode of Delivery (Oxygen) Room air (05/28/20 11:23 PM) Room air (05/28/20 8:53 PM) Blood pressure sites Arm, right (05/28/20 11:23 PM) Arm, right (05/28/20 8:53 PM) Temperature Route Oral (05/28/20 11:23 PM) Oral (05/28/20 8:53 PM)
--- OUTSIDE RECORDS SUMMARY | 2023-08-03 02:40 | XMS_ITS | Continuity of Care Document ---
Author Organization [facility] ter Address [address] [place] [address]- Care Team Providers Care Tempering Machine Operator Name Role Phone Kevin FARLEY, Syed Avilez Primary Care Physician En[place] [facility] [place] Date(s): 02/21/21 - 02/21/[address] [address]- Discharge Disposition: A-D/C Home Attending Physician: Celia FARLEY, Lacho Garcia Admitting Physician: Lacho Yang MD Referring Physician: Not on Staff, Referring MD Allergies, Adverse Reactions, Alerts Substance Reaction Severity Status NKA Active Immunizations Given and Recorded Vaccine Date Status Refusal Reason SARS-CoV-2 (COVID-19) mRNA BNT-162b2 vac 02/12/21 Recorded pneumococcal 23-valent vaccine 02/13/12 Recorded Hepatitis A Adult Vaccine 10/06/08 Recorded Hepatitis A Adult Vaccine 09/04/08 Recorded hepatitis B adult vaccine 08/26/05 Recorded Medications cloNIDine 0.1 mg oral tablet 0.1 [...] drug. Start Date: 02/16/21 Status: Ordered Methadone = 70 mg, By Mouth, 0 Refills, Maintenance, 02/16/21 10:12:00 EST, Partial fill upon patient requestif the prescription is for a schedule II opioid drug. Start Date: 02/16/21 Status: Ordered naloxone 4 mg/0.1 mL nasal spray = 4 mg, Nares, Both, Once, may repeat every 2 to 3 minutes until patient responds, # 2 each, 0 Refills, Soft Stop, 05/08/18 19:53:28 EST Start Date: 05/08/18 Status: Ordered oxyCODONE 5 mg oral tablet 5 mg, Tablet, By Mouth, Once, STAT, 02/21/21 21:04:00 EST, Stop date 02/21/21 21:04:00 EST Start Date: 02/21/21 Stop Date: 02/21/21 Status: Completed Vistaril pamoate 50 mg oral capsule 1 [...] Hepatitis C(Confirmed) Active Obese class I(Confirmed) Active Results Radiology Reports * Exam Date Time Procedure Performing Provider Status 02/21/21 9:25 PM Lumbar Spine 2 or 3 Views Vane Darby (Verified) Notes: (Lumbar Spine 2 or 3 Views) Reason For Exam: Trauma RESULT: Lumbar Spine 2 or 3 Views Lumbar Spine 2 or 3 Views CLINICAL INDICATION: Hx of Present Illness: pt reports falling down the stairs 1 day ago experiencing lower back pain since; Reason: Trauma; Clinical Question(s): Fracture Dislocation COMPARISONS: None TECHNIQUE: AP, lateral, and coned down LS junction views were obtained. FINDINGS: There are 5 nonrib-bearing lumbar type vertebra. Lumbar vertebral body heights are maintained. There is no maegan-or retrolisthesis. There is mild loss of disc space height at L4-5 and L5-S1. There is facet arthropathy at L5-S1 contributing to foraminal narrowing. IMPRESSION: No lumbar spine fracture. Advanced chronic degenerative changes at L5-S1. WSN: [id number] Ordering Physician: Lacho Yang Dictated By: Charlie Serna MD Dictated Date/Time: 02/21/21 9:35 pm Reviewed By: Charlie Serna MD Signed By: Charlie Serna MD Signed Date/Time: 02/21/21 9:35 pm Transcribed By: BRANDON Transcribed Date/Time: 02/21/21 9:29 pm Vital Signs Most recent to oldest [Reference Range]: 1 2 3 Oxygen Saturation [94-100 %] 97 % (02/21/21 9:03 PM) 97 % (02/21/21 8:10 PM) Pulse Rate [55-90 bpm] 99 bpm *H* (02/21/21 9:03 PM) 126 bpm *H* (02/21/21 8:10 PM) Blood Pressure [90-138/55-84 mm Hg] 158/88mm Hg *H* (02/21/21 9:03 PM) 171/102mm Hg *H* (02/21/21 8:10 PM) Respiratory Rate [16-30 br/min] 16 br/min (02/21/21 9:27 PM) 18 br/min (02/21/21 9:03 PM) 18 br/min (02/21/21 8:10 PM) Temperature [96.8-100.4 DegF] 99.1 DegF (02/21/21 9:03 PM) 99.2 DegF (02/21/21 8:10 PM) Mode of Delivery (Oxygen) Room air (02/21/21 9:03 PM) Room air (02/21/21 8:10 PM) Blood pressure sites Arm, right (02/21/21 9:03 PM) Temperature Route Oral (02/21/21 9:03 PM) Oral (02/21/21 8:10 PM) Social History Social History Type Response Tobacco Use: 4 or less cigar ettes(less than 1/4 pack)/day in last 30 days. Sex
--- OUTSIDE RECORDS SUMMARY | 2023-08-03 02:40 | XMS_ITS | Patient Health Record ---
Author Organization [facility] Address [address], [place] [id number] Support Name Relationship Address Phone Rupesh Mccartney Guarantor Unknown [phone] REASON FOR REFERRAL No Information SOCIAL HISTORY Sex Assigned At : Social History Observation Description Sex Assigned At Unknown PLAN OF TREATMENT No Information
--- OUTSIDE RECORDS SUMMARY | 2023-08-03 02:40 | XMS_ITS | Continuity of Care Document ---
Author Organization [facility] Address [address] [place] [address]- Care Team Providers Care Police Or Patrol Park Officer Name Role Phone Kevin FARLEY, Syed Avilez Primary Care Physician Encounter [facility] Date(s): 02/17/21 - 02/17/[address] [address]- Discharge Disposition: A-D/C Home Attending Physician: Gabriele [...] Status: Ordered methadone 10 mg oral tablet 70 mg, Tablet, By Mouth, Once, STAT, 02/17/21 10:07:00 EST, Stop date 02/17/21 10:07:00 EST Start Date: 02/17/21 Stop Date: 02/17/21 Status: Completed naloxone 4 mg/0.1 mL nasal [...] [Reference Range]: 1 2 Height 180 cm (02/17/21 10:04 AM) 180 cm (02/17/21 10:01 AM) Weight 106.2 kg (02/17/21 10:04 AM) 106.2 kg (02/17/21 10:01 AM) Oxygen Saturation [94-100 %] 99 % (02/17/21 10: AM) Pulse Rate [55-90 bpm] 58 bpm (02/17/21 10:01 AM) Body Mass Index [18.5-24.99] 32.78 *>HHI* (02/17/21 10:01 AM) Blood Pressure [90-138/55-84 mm Hg] 156/ 97mm Hg *H* (02/17/21 10: AM) Respiratory Rate [16-30 br/min] 17 br/mi n (02/17/21 10:25 AM) 20 br/min (02/17/21 10:01 AM) Temperature [96.8-100.4 DegF] 99.5 DegF (02/17/21 10:01 AM) Mode of Delivery (Oxygen) Room air (02/17/21 10:01 AM) Blood pressure sites Arm, left (02/17/21 10:01 AM) Temperature Route Oral (02/17/21 10:01 AM) Dry Weight 106.2 kg (02/17/21 10:04 AM) 106.2 kg (02/17/21 10:01 AM) Weight Obtained Via Standing scale (02/17/21 10:01 AM) Dry Weight Obtained Via Standing scale (02/17/21 10:01 AM) Social History Social History Type Response Tobacco Use: 4 or less cigar ettes(less than 1/4 pack)/day in last 30 days. Sex
--- OUTSIDE RECORDS SUMMARY | 2023-08-03 02:40 | XMS_ITS | Continuity of Care Document ---
Author Organization [facility] ter Address [address] [place] [address]- Care Team Providers Care Driver Medic Name Role Phone Kevin FARLEY, Syed Avilez Primary Care Physician Encounter [facility] [place] Date(s): 02/23/21 - 02/23/[address] [address]- Discharge Disposition: A-D/C Home Attending Physician: Celia [...] oral tablet 70 mg, Tablet, By Mouth, 02/23/21 9:00:00 EST Start Date: 02/23/21 Stop Date: 02/23/21 Status: Completed naloxone 4 mg/0.1 mL nasal [...] 1 2 3 Oxygen Saturation [94-100 %] 98 % (02/23/21 12:30 PM) 98 % (02/23/21 6:52 AM) Pulse Rate [55-90 bpm] 73 bpm (02/23/21 12:30 PM) 103 bpm *H* (02/23/21 6:52 AM) Blood Pressure [90-138/55-84 mm Hg] 162/88mm Hg *H* (02/23/21 12:30 PM) 190/119mm Hg *H* (02/23/21 6:52 AM) Respiratory Rate [16-30 br/min] 20 br/min (02/23/21 12:30 PM) 16 br/min (02/23/21 9:44 AM) 16 br/min (02/23/21 8:44 AM) Temperature [96.8-100.4 DegF] 98.2 DegF (02/23/21 6:52 AM) Mode of Delivery (Oxygen) Room air (02/23/21 12:30 PM) Room air (02/23/21 6:52 AM) Blood pressure sites Arm, right (02/23/21 12:30 PM) Arm, left (02/23/21 6:52 AM) Temperature Route Oral (02/23/21 6:52 AM) Social History Social History Type Response Tobacco Use: 4 or less cigar ettes(less than 1/4 pack)/day in last 30 days. Sex
--- OUTSIDE RECORDS SUMMARY | 2023-08-03 02:40 | XMS_ITS | Continuity of Care Document ---
Author Organization [facility] Address [address] [place] [address]- Care Team Providers Care Timber Feller Name Role Phone Kevin FARLEY, Syed Avilez Primary Care Physician Encounter [facility] Date(s): 02/18/21 - 02/18/[address] [address]- Discharge Disposition: A-D/C Home Attending Physician: Sachin Ponce MD Admitting Physician: Sachin Ponce MD Referring Physician: Not on Staff, Referring [...] tablet 70 mg, Tablet, By Mouth, Once, Routine, 02/18/21 18:00:00 EST, Stop date 02/18/21 18:00:00 EST Start Date: 02/18/21 Stop Date: 02/18/21 Status: Completed naloxone 4 mg/0.1 mL nasal [...] [Reference Range]: 1 2 Height 180 cm (02/18/21 4:20 PM) Weight 107.1 kg (02/18/21 4:20 PM) Oxygen Saturation [94-100 %] 100 % (02/18/21 4:20 PM) Pulse Rate [55-90 bpm] 69 bpm (02/18/21 4:20 PM) Blood Pressure [90-138/55-84 mm Hg] 147/ 97mm Hg *H* (02/18/21 4:20 PM) Respiratory Rate [16-30 br/min] 16 br/mi n (02/18/21 4:40 PM) 18 br/min (02/18/21 4:20 PM) Temperature [96.8-100.4 DegF] 98.3 DegF (02/18/21 4:20 PM) Temperature Route Temporal (02/18/21 4:20 PM) Dry Weight 107.1 kg (02/18/21 4:20 PM) Dry Weight Obtained Via Standing scale (02/18/21 4:20 PM) Social History Social History Type Response Tobacco Use: 4 or less cigar ettes(less than 1/4 pack)/day in last 30 days. Sex
--- OUTSIDE RECORDS SUMMARY | 2023-08-03 02:40 | XMS_ITS | Continuity of Care Document ---
Author Organization [facility] Address [address] [place] [address] Phone Care Team Providers Care Methods Study Analyst Name Role Phone Pcp-MD Miguelito Adam Primary Care Provider Unavailabl e Pcp-MD Miguelito Adam Family Provider Unavailable MD Kevin William Emergency Provider Unavaila MD Bin Rose Attending Provider [email or web address] Chief Complaint and Reason for Visit Chief Complaint RIGHT SUPRACLAVICULA R ABSCESS Reason for Visit Abscess Foreign body in skin Allergies, Adverse Reactions, Alerts No known allergies Social History Smoking Status Unknown if ever smoked Observation Status Observation Response Date of Response Lives With Friend/Roommate July 24, 2022 1:22am Living Situation Apartment July 24 1:22am Additional Data Assigned Sex Male Problems Active Problems Medical Problem Onset Date Status Abscess Active Foreign body in skin Active Opioid abuse Active Procedures Procedure Date Performed Status CT soft tissue neck w contrast July 23, 2022 9:31pm completed Relevant Diagnostic Tests and/or Laboratory Data Laboratory Results Test Date/Time Result Interpretation Reference Range Result Comment Performing Site White Blood Count July 23, 2022 9:50pm 8.6 X10 3/uL 4.5-11.0 [facility] [id number] [address] [facility] [address] Red Blood Count July 23, 2022 9:50pm 4.82 X10 6/uL 4.00-5.50 [facility] [id number] [address] [place] [address] Hemoglobin July 23, 2022 9:50pm 14.4 g/dl 13.0-17.0 [facility] [id number] [address] [place] [address] Hematocrit July 23, 2022 9:50pm 45.0 % 37.5-50.0 [facility] [id number] [address] [place] [address] Mean Corpuscular Volume July 23, 2022 9:50pm 93.4 fl 80.0-100.0 [facility] [id number] [address] [place] [address]63 Mean Corpuscular Hemoglobin July 23, 2022 9:50pm 29.9 pg 27.0-34.0 [facility] [id number] [address] [place] [address] Mean Corpuscular Hemoglobin Concent July 23, 2022 9:50pm 32.0 g/dl 31.0-36.0 [facility] [id number] [address] [place] [address] Red Cell Distribution Width July 23, 2022 9:50pm 13.1 % 11.5-15.0 [facility] [id number] [address] [place] [address] Platelet Count July 23, 2022 9:50pm 336 X10 3/uL 150-400 [facility] [id number] [address] [place] [address] Immature Granulocyte % (Auto) July 23, 2022 9:50pm 0.2 % [facility] [id number] [address] [place] [address] Neutrophils (%) (Auto) July 23, 2022 9:50pm 59.8 % [facility] [id number] [address] [place] [address] Lymphocytes (%) (Auto) July 23, 2022 9:50pm 30.0 % [facility] [id number] [address] [place] [address] Monocytes (%) (Auto) July 23, 2022 9:50pm 6.9 % [facility] [id number] [address] [place] [address] Eosinophils (%) (Auto) July 23, 2022 9:50pm 2.6 % [facility] [id number] [address] [place] [address] Basophils (%) (Auto) July 23, 2022 9:50pm 0.5 % [facility] [id number] [address] [place] [address] Immature Granulocyte # (Auto) July 23, 2022 9:50pm 0.02 X10 3/uL 0.00-0.09 [facility] [id number] [address] [place] [address] Neutrophils # (Auto) July 23, 2022 9:50pm 5.1 X10 3/uL 1.5-7.8 [facility] [id number] [address] [place] [address] Lymphocytes # (Auto) July 23, 2022 9:50pm 2.6 X10 3/uL 1.0-4.8 [facility] [id number] [address] [place] [address] Monocytes # (Auto) July 23, 2022 9:50pm 0.6 X10 3/uL 0.0-0.8 [facility] [id number] [address] [place] [address] Eosinophils # (Auto) July 23, 2022 9:50pm 0.2 X10 3/uL 0.0-0.5 [facility] [id number] [address] [place] [address] Basophils # (Auto) July 23, 2022 9:50pm 0.0 X10 3/uL 0.0-0.2 [facility] [id number] [address] [place] [address] Nucleated Red Blood Cells % July 23, 2022 9:50pm 0.0 /100 WBC 0.0-0.0 [facility] [id number] [address] [place] [address] Sodium Level July 23, 2022 9:50pm 138 mmol/L 137-146 [facility] [id number] [address] [place] [address] Potassium Level July 23, 2022 9:50pm 3.8 mmol/L 3.5-5.3 [facility] [id number] [address] [facility] [address] Chloride Level July 23, 2022 9:50pm 99 mmol/L 98-107 [facility] [id number] [address] [facility] [address] Carbon Dioxide Level July 23, 2022 9:50pm 29 mmol/L 23-32 [facility] [id number] [address] [facility] [address] Anion Gap July 23, 2022 9:50pm 10 mmol/L 5-15 [facility] [id number] [address] [facility] [address] Blood Urea Nitrogen July 23, 2022 9:50pm 13 mg/dl - [facility] [id number] [address] [facility] [address] Creatinine July 23, 2022 9:50pm 0.8 mg/dL 0.6-1.4 [facility] [id number] [address] [facility] [address] Estimated Creatinine Clearance July 23, 2022 9:50pm 157.1 ml/min This value is calculated by Cockcroft Gault Equation using ideal body weight. This result is dependent on an accurate patient height and weight which is obtained from patients medical record. Aletheaofjorge, Jose.W. and M.HRosi Barker. Prediction of creatinine clearance from serum creatinine. Nephron. 1976. 16(1):31-41. [facility] [id number] [address] [facility] [address] Estimat Glomerular Filtration Rate July 23, 2022 9:50pm 116 >90 Reported eGFR is based on the CKD-EPI 2020 equation that does not use a race coefficient. Additional information can be found at: 1_icb_egfr_s ummary_flyer 5.pdf (kidney.org) [facility] [id number] [address] [facility] [address] BUN/Creatinine Ratio July 23, 2022 9:50pm 16.3 10.0-20.0 [facility] [id number] [address] [place] [address] Glucose Level July 23, 2022 9:50pm 155 mg/dL 70-100 [facility] [id number] [address] [place] [address] Calcium Level July 23, 2022 9:50pm 8.6 mg/dl 8.6-10.3 [facility] [id number] [address] [place] [address] Total Bilirubin July 23, 2022 9:50pm < 0.2 mg/dl <1.1 [facility] [id number] [address] [place], [place] [address] Aspartate Amino Transf (AST/SGOT) July 23, 2022 9:50pm 40 U/L 15-41 [facility] [id number] [address] [place] [address] Alanine Aminotransferase (ALT/SGPT) July 23, 2022 9:50pm 66 U/L 14-63 [facility] [id number] [address] [place] [address] Total Protein July 23, 2022 9:50pm 7.6 g/dL 6.4-8.3 [facility] [id number] [address] [place] [address] Albumin July 23, 2022 9:50pm 3.7 g/dl 4.0-5.0 [facility] [id number] [address] [place] [address] Albumin/Globulin Ratio July 23, 2022 9:50pm 0.9 1.0-2.6 [facility] [id number] [address] [place] [address] Alkaline Phosphatase July 23, 2022 9:50pm 74 U/L 40-129 [facility] [id number] [address] [place] [address] Diagnostic Imaging Reports Report Dictated Date/Time Dictated By Status Radiology Report July 23, 2022 10:55pm Marvin Mcclain MD completed [address] [id number] Patient Name: Rupesh Mccartney Medical Record#: [id number] Address: [address] [place] [address] City/State/[place]: [place] [address]: Angelina Brown MD Insurance: [facility] (Medicaid) /Age/Sex: 1985/37/M Self Pay Admit/Reg Date: 07/23/[address]: Loyda Harris, [facility] Location: ED.[facility]/ PCP: Pcp-Md MIGUELITO Adam Date of Service: 07/23/22 Order (s): CT soft tissue neck w contrast CPT Code: 07328 Report Number: [id number] Reason for Exam: right supraclavian abscess PROCEDURE: [...] been discussed with GIO Harris in the [facility] Emergency Room at 11:00 PM on 05/25/2022. Dictated By: Marvin Mcclain MD 07/23/225 Signed By: Marvin Mcclain MD 07/23/22 2328 TD/TT: 07/23/22 2255Tech: [id number] cc: ABHIJEET CLEMENTS; YOBANI* Loyda Harris PAC; Pcp-MD Jair; William Brown MD Vital Signs Vital Reading Result Reference Range Collection Date/Time Height 180.34 cm July 23 7:39pm Weight 108.86 kg July 23 7:39pm Body Temperature 97.9 [degF] 97.6-99.6 July 23, 2022 7:39pm Heart Rate 85 /min 60-90 July 23 7:39pm Respiratory rate 15 /min 12-24 July 23, 2022 7:39pm Oxygen saturation by Pulse oximetry 98 % 95-100 July 23, 2022 7:3 9pm BP Systolic 138 mm[Hg] 90-140 July 23 7:39pm BP Diastolic 82 mm[Hg] 60-90 July 23 7:39pm BMI (Body Mass Index) 33.5 kg/m2 July 23, 2022 7:39pm Advance Directives Advance Directive Response Recorded Date/ Time Pt has Medical Orders for Li fe Sustaining Tx Form (MOLST)? No July 24, 2022 1:22am Advance Directives No July 24 023 1:22am Health Care Proxy No July 24 1:22am Insurance Providers Guarantor Rupesh Mccartney Address [address] [place] [address] Contact Info. Home Phone: Payer Policy Id Coverage Id Subscriber's Name Subscriber Id Effective Date Expiration Date [facility] (Medicaid) [id number] Rupesh Mccartney [id number] [facility] Required [id number] Encounters Encounter Location(s) Arrival/Admit Date Discharge/Depart Date Provider(s) Admitted Inpatient [address] July 23, 2022 11:30pm Bin Fonseca MD Recent Diagnosis Onset Date Abscess Foreign body in skin Assessments Diagnosis Onset Date Resolution Status Abscess acute Foreign body in skin acute Plan of Treatment Future Tests Future scheduled test information is unavailable Pending Tests Test Name Ordered Date Scheduled Date Hepatitis A IgM Antibody July 24, 2022 6:00am Hepatitis B Surface Antigen July 24, 2022 6:0 0am Hepatitis B Core IgM Antibody Jolie 27th, 2023 6 :00am Hepatitis C Antibody July 24, 2022 6:00am Coronavirus,COVID19 NAAT July 23, 2022 11:22p m July 23, 2022 11:22pm VTE Risk Assessment Medical July 23, 2022 11: 29pm July 23, 2022 11:30pm Future Visits Future appointment information is unavailable Referrals to Other Providers Referral information is unavailable Future Procedures Procedure Name Ordered Date Scheduled Date Hepatitis Acute Panel July 23, 2022 11:39pm A pril 2022 6:00am Hospital Level of Care July 23, 2022 11:29pm July 23, 2022 11:30pm Code Status July 23, 2022 11:29pm June 292022 11:29pm ED Transfer of Care to Adm Physician [...] Patient instructions are unavailable Goals Acute Goals Recognize the need for isola tion Describe the mode of transmi ssion Absence of infection signs a nd symptoms Patient/Caregiver understands the importance of: - Baseline body temperature - Handwashing and environmental hygiene - Antibiotics compliance
[2023-08-03 02:46] LABS: IDNOW Serial# 08D9AD1C; Strep A Nucleic Acid Positive (Negative)
--- NOTE | 2023-08-03 02:53 | ED.EAR ---
HPI - Ear Problem General Chief complaint: Ear Problems Stated complaint: ear infection Time Seen by Provider: 08/03/23 02:41 Source: patient Mode of arrival: ambulatory Limitations: no limitations History of Present Illness HPI Narrative: Patient complaining of left ear pain for last 2 days also having sore throat no fever no chills does not remember any foreign body in the left ear no trauma Related Data Home Medications ?Medication ?Instructions ?Recorded ?Confirmed gabapentin 300 mg capsule 1 cap PO TID 01/20/21 01/20/21 Previous Rx's ?Medication ?Instructions ?Recorded amoxicillin 875 mg-potassium 1 tab PO BID #20 tabs 08/03/23 clavulanate 125 mg tablet Allergies Allergy/AdvReac Type Severity Reaction Status Date / Time cat dander [CATS] Allergy Unknown ALLERGIES Verified 08/03/23 02:15 clams Allergy Unknown UNKNOWN Verified 08/03/23 02:15 dog dander [DOGS] Allergy Unknown ALLERGIES Verified 08/03/23 02:15 pollen extracts [POLLEN] Allergy Unknown ALLERGIES Verified 08/03/23 02:15 DIARRHEA MEDICATION Allergy Unknown UNABLE TO Uncoded 08/03/23 02:15 CONTROL TONGUE AND MOUTH MOVEMENT DUST Allergy Unknown ALLERGIES Uncoded 08/03/23 02:15 Review of Systems Review of Systems: Yes all other systems are reviewed and are negative [facility] Social History Social History Alcohol intake: unknown Smoked in Last 30 Days: Yes Use of substances other than those prescribed or required for medical reasons: Yes Substance Use Type: Crack/Cocaine and Marijuana Substance Use Frequency: Chronic Longstanding Advance Directives: No Advance Directives Information Provided: No Do you have a plan to hurt others: No Plan Physical Exam Vital Signs: Vital Signs: Last Vital Signs Temp 98.4 F 08/03/23 03:07 Pulse 101 H 08/03/23 03:07 Resp 20 08/03/23 03:07 BP 148/68 H 08/03/23 03:07 Pulse Ox 97 08/03/23 03:07 O2 Del Method Room Air 08/03/23 03:07 BMI result Body Mass Index 27.4 Appearance: Alert. Oriented X3. No acute distress. ENT: Pharynx erythema+ Oral Mucosa moist foreign body in left EAC Neck: Normal inspection. Neck supple. CVS: Normal heart rate and rhythm. Pulses normal. Respiratory: No respiratory distress. Equal air entry bilateral, Abdomen: Soft and nontender. Bowel sounds are present, Skin: Skin warm and dry. Normal skin color. Normal skin turgor. Medications Administered Discontinued Medications Generic Name Dose Route Start Last Admin Trade Name Crissy PRN Reason Stop Dose Admin Amoxicillin/Clavulanate Potassium 875 mg 08/03/23 02:55 08/03/23 03:01 Amoxicillin/Potassium Clav 875 Mg Tablet PO 08/03/23 02:56 875 mg ONCE ONE Administration Ibuprofen 600 mg 08/03/23 02:55 08/03/23 03:02 Ibuprofen 600 Mg Tablet PO 08/03/23 02:56 600 mg ONCE ONE Administration Procedures FB Removal Ear Location: ear canal (L) Foreign Body Suspected: other plastic TM intact pre-procedure: yes Foreign Body Removed: yes Foreign Body Removal Technique: curette Tympanic Membrane Intact Post Procedure: Yes Patient Tolerated Procedure: well Complications: none Medical Decision Making Lab Data Labs: Lab Results 08/03/23 Range/Units 02:35 S. pyogenes GrpA JOSH Positive A (Negative) Discharge Plan Discharge Clinical Impression: Acute streptococcal pharyngitis, Acute foreign body of left ear canal Patient Disposition: Home, Self-Care Instructions: Ear Foreign Body (ED), Strep Throat (ED) Additional Instructions: Foreign body from left ear was removed Take antibiotics for throat infection as prescribed Prescriptions: New amoxicillin-pot clavulanate 875-125 mg tablet 1 tab PO BID Qty: 20 0RF No Action gabapentin 300 mg capsule 1 cap PO TID Interventions: ED Discharge Assessment Last Done: 08/03/23 03:07 Discharge Date/Time: 08/03/23 03:08 Print Language: Persian
[2023-08-03] MEDS: Amoxicillin/Potassium Clav 875 MG TABLET PO (03:01)
[2023-08-03] MEDS: Ibuprofen 600 MG TABLET PO (03:02)
[2023-08-03 03:07] VITALS: BP 148/68; PULSE 101; RESP 20; TEMP 36.9; O2SAT 97
== END 2023-08-03 03:08 | disposition home or self-care (01) ==
PROVIDERS: Emergency Provider Internal Medicine
DX: J02.0 Streptococcal pharyngitis (principal); T16.2XXA Foreign body in left ear, initial encounter; W44.8XXA Other foreign body entering into or through a natural orifice, initial encounter; Y93.9 Activity, unspecified; Y92.9 Unspecified place or not applicable; Y99.9 Unspecified external cause status
CPT/HCPCS: 87651; 99283; 99284